=== PATIENT | male | born 1960 | race Caucasian/White ===

== ENCOUNTER 2018-08-22 10:09 | Day surgery (SDC) | payer OTHER ==
[2018-08-21 13:53] VITALS: BMI 33.3
[~2018-08-22 10:09] MED LIST: BUPIVACAINE HCL/PF (5 MG/ML) 30 ML VIAL IJ ONE
[2018-08-22] MEDS ORDERED: CEFAZOLIN 2 GM in DEXTROSE 5%-WATER - 50 ML IVPB ONE (11:15)
[2018-08-22] MEDS ORDERED: ceFAZolin SODIUM 1 GM VIAL ONE (11:22)
[2018-08-22] MEDS ORDERED: DEXAMETHASONE SOD PHOSPHATE 4 MG/1 ML VIAL ONE (11:57)
[2018-08-22] MEDS ORDERED: BUPIVACAINE HCL/PF 0.5% (5MG/ML) 10 ML VIAL ONE (11:57)
[2018-08-22] MEDS ORDERED: MIDAZOLAM HCL 2 MG/2 ML SINGLE DOSE VIAL ONE ×3 (12:18→12:34)
[2018-08-22] MEDS ORDERED: PROPOFOL 20 ML ONE (12:23)
[2018-08-22] MEDS ORDERED: SUCCINYLCHOLINE CHLORIDE 200 MG/10 ML VIAL ONE (12:24)
[2018-08-22] MEDS ORDERED: ceFAZolin SODIUM 1 GM VIAL IVPB ONE (12:27)
[2018-08-22] MEDS ORDERED: LIDO 2%/EPI 1:200000 PRESRVFRE (20 ML SDVIAL) INF ONE (12:50)
[2018-08-22] MEDS ORDERED: BUPIVACAINE HCL/PF (5 MG/ML) 30 ML VIAL IJ ONE ×2 (13:42)
[2018-08-22] MEDS ORDERED: PROMETHAZINE HCL 25 MG/1 ML VIAL IVPUSH PRN (14:10)
[2018-08-22] MEDS ORDERED: oxyCODONE HCL 5 MG TABLET PO PRN (14:10)
[2018-08-22] MEDS ORDERED: ONDANSETRON 4 MG/2 ML VIAL IVPUSH PRN (14:10)
[2018-08-22] MEDS ORDERED: LACTATED RINGERS SOLUTION 1,000 ML IV SCH (14:15)
[2018-08-22] MEDS ORDERED: ACETAMINOPHEN 325 MG TABLET (FP) ONE (16:34)
[2018-08-22] MEDS ORDERED: ACETAMINOPHEN 325 MG TABLET (FP) PO ONE ×2 (16:35→16:58)
[2018-08-22 18:23] VITALS: TEMP 98.4
[2018-08-22 18:33] VITALS: BP 143/88; PULSE 89
--- NOTE | 2018-09-10 15:54 | OP ---
DATE OF OPERATION: 08/22/2018 PREOPERATIVE DIAGNOSIS: Fracture dislocation of left 5th metatarsal bone. POSTOPERATIVE DIAGNOSIS: Fracture dislocation of left 5th metatarsal bone. SURGEON: Josh Carpio M.D. INVESTIGATION SPECIALIST: PROCEDURE: Open reduction of fracture with fixation, left 5th metatarsal. DESCRIPTION OF PROCEDURE: Under satisfactory anesthesia and local sedation and local anesthesia, the 5th metatarsal fracture was located under fluoroscopy. Two small incisions were made, and 2 Steinmann pins as well as a 0.062 K-wire were used in order to appropriately fixate the fracture, which was done with stability and noted under fluoroscopy in satisfactory position. The patient tolerated the procedure and anesthesia well and left the operating room in stable condition. A posterior splint cast was also applied to the left foot with a well padded dressing. LEV MEHTA/[id number]
== END 2018-08-22 17:20 | disposition home or self-care (01) ==
LOC: JASU-SURG 10:09
PROVIDERS: ATTEND Podiatrist Foot Surgery
PROC: 0QSP04Z Reposition Left Metatarsal with Internal Fixation Device, Open Approach (ICD-10-PCS; principal; 2018-08-22 11:30)
DX: S92.352A Displaced fracture of fifth metatarsal bone, left foot, initial encounter for closed fracture (principal); X58.XXXA Exposure to other specified factors, initial encounter; Y93.9 Activity, unspecified; Y92.9 Unspecified place or not applicable; Y99.9 Unspecified external cause status; E11.9 Type 2 diabetes mellitus without complications; Z79.4 Long term (current) use of insulin
CPT/HCPCS: 28485; C1713; 76000-TC-FY; 82962; 94760

== ENCOUNTER 2018-10-18 11:31 | Day surgery (SDC) | payer OTHER ==
[2018-10-15 12:09] VITALS: BMI 34.0
[~2018-10-18 11:31] MED LIST changes: -BUPIVACAINE HCL/PF (5 MG/ML) 30 ML VIAL IJ ONE; +LACTATED RINGERS SOLUTION 1,000 ML IV SCH; +ONDANSETRON 4 MG/2 ML VIAL IVPUSH PRN; +oxyCODONE HCL 5 MG TABLET PO PRN
[2018-10-18] MEDS ORDERED: PROPOFOL 20 ML ONE ×7 (11:36→13:27)
[2018-10-18] MEDS ORDERED: MIDAZOLAM HCL 2 MG/2 ML SINGLE DOSE VIAL ONE (11:36)
[2018-10-18] MEDS ORDERED: LIDOCAINE HCL/PF 2% SDV 5ML VIAL ONE (11:36)
[2018-10-18] MEDS ORDERED: LIDOCAINE HCL 2% (20ML MULTI-DOSE VIAL) NR ONE (12:58)
[2018-10-18] MEDS ORDERED: BUPIVACAINE HCL/PF 2.5 MG/ML - 30 ML VIAL IJ ONE (12:58)
[2018-10-18] MEDS ORDERED: ceFAZolin SODIUM 1 GM VIAL ONE (13:13)
[2018-10-18] MEDS ORDERED: BUPIVACAINE HCL/PF 0.25% (2.5MG/ML) 10 ML VIAL IJ ONE (13:16)
[2018-10-18] MEDS ORDERED: LIDOCAINE HCL 2% (50ML VIAL) NR ONE (13:16)
[2018-10-18] MEDS ORDERED: KETOROLAC TROMETHAMINE 30 MG/1 ML VIAL ONE (13:37)
[2018-10-18 15:32] VITALS: BP 141/88; PULSE 78; TEMP 98
--- NOTE | 2018-10-21 09:12 | OP ---
DATE OF OPERATION: DATE OF DICTATION: 10/18/2018 PREOPERATIVE DIAGNOSIS: Left foot painful hardware. POSTOPERATIVE DIAGNOSIS: Left foot painful hardware. PROCEDURE: Removal of hardware, left foot and debridement of ulcer. ANESTHESIA: IV MAC with local. ESTIMATED BLOOD LOSS: 2 mL. HEMOSTASIS: Pneumatic ankle tourniquet, left. DESCRIPTION OF PROCEDURE: The patient was brought to the operating room and placed supine on the operating room table. After adequate IV sedation, a local infiltrative block was administered utilizing a 1:1 mix of 1% lidocaine plain and 0.25% Marcaine plain. A total of 20 mL were used. The left foot was then prepped, scrubbed, and draped in the usual aseptic fashion. Upon exsanguination of the left foot with an Esmarch bandage and placement of padding at the ankle, the pneumatic ankle tourniquet was inflated to 250 mmHg. Surgery began in the following manner. Attention was directed to the base of the 5th metatarsal of the left foot. Using intraoperative fluoroscopy, the Steinmann pin was detected and marked, and dorsolateral 2-cm linear longitudinal incision along the base of the 5th metatarsal was made down to bone. This was deepened through sharp and blunt dissection with care being taken to identify and retract vital neurovascular structures. Steinmann pin tip was visualized at this time, and an Allis clamp was used to attach to the tip of the Steinmann pin, and pin was removed out from the foot of the patient and removed from the operative field. Intraoperative fluoroscopy confirmed all parts of the pin were removed. Copious amounts of sterile saline solution were used to flush the wound. Skin was reapproximated with 4-0 nylon in similar suture fashion. Attention was directed to the plantar lateral aspect of the patient's left midfoot where a 2 x 2-cm ulceration was noted. This ulcer was fibrotic and necrotic in nature. This was debrided with 15 blade and flushed and cleansed with sterile saline solution. All incision and plantar ulcer were dressed with Xeroform dry sterile dressing such as 4 x 4 gauze, ABD pad, Kerlix. The tourniquet was released, and prompt hyperemic response was noted to all digits of the left foot with capillary refill time less than 3 seconds to all digits. The patient tolerated the procedure and anesthesia well and left the operating room for recovery room in good condition with vital signs stable, neurovascular status intact to all digits of the left foot. LEV MEHTA/[id number]
--- NOTE | 2018-10-23 13:59 | PATH ---
Surgical Pathology Report Patient Name: AUDREY ENAMORADO [facility]. Rec. #: [id number] /Age/Gender: 1960 (Age: 58) / M Account: [id number] Location: [facility] AMBULATORY Taken: 10/18/2018 Received: 10/18/2018 Reported: 10/23/2018 Physicians: Josh Carpio M.D. Specimen(s) Received EXPLANTED HARDWARE LEFT FOOT Clinical History Painful hardware left foot Final Diagnosis EXPLANTED HARDWARE, FOOT, LEFT, REMOVAL: SURGICAL HARDWARE. MACROSCOPIC DIAGNOSIS. Electronically Signed Mirian Tillman M.D. Gross Description Received fresh labeled "explanted hardware left foot," is a 7.4 cm in length garza metallic nail. No soft tissue is present. No sections are submitted, gross only. 10/22/2018 [facility]10/22/2018
== END 2018-10-18 15:25 | disposition home or self-care (01) ==
LOC: FASU 11:31
PROVIDERS: ATTEND Podiatrist Foot Surgery
PROC: 0HBNXZZ Excision of Left Foot Skin, External Approach (ICD-10-PCS; 2018-10-18)
PROC: 0QPP04Z Removal of Internal Fixation Device from Left Metatarsal, Open Approach (ICD-10-PCS; principal; 2018-10-18 13:25)
DX: T84.84XA Pain due to internal orthopedic prosthetic devices, implants and grafts, initial encounter (principal); L97.429 Non-pressure chronic ulcer of left heel and midfoot with unspecified severity; Y79.1 Therapeutic (nonsurgical) and rehabilitative orthopedic devices associated with adverse incidents; Y92.9 Unspecified place or not applicable
CPT/HCPCS: 73630-TC-LT; 82962; 88300-TC; 94760